=== PATIENT | male | born 1990 | race Caucasian/White ===

== ENCOUNTER → 2020-07-12 | Emergency (ER) | payer MEDICAID ==
[~2020-07-12] VITALS: Ht 165.1 cm; Wt 81.6 kg
[~2020-07-12] MED LIST: CEPH500T PO; CEPHALEXIN MONOHYDRATE 500 MG CAPSULE PO ONE; IBUP-1955 PO; SULF1TAB48 PO; SULFAMETH/TRIMETH 800/160 MG 1 UDTAB TABLET ONE; SULFAMETH/TRIMETH 800/160 MG 1 UDTAB TABLET PO ONE; TDAP [DIPH/PERTUSSIS/TET] 0.5 ML VIAL IM ONE
--- NOTE | 2020-07-12 20:35 | NUR ---
PT BIBSELF C/O RT RING FINGER LAC X4 DAYS. PT AAOX4 BREATHING EVENLY AND UNLABORED. PT STATES HE " WAS WORKING ON HIS CAR AND SLICED HIS FINGER ON THE FENDER." PT ATTACHED TO MONITOR AND POX. PT SKIN WARM AND INTACT. PT GIVEN BLANKET AND CALL LIGHT WITHIN REACH
--- NOTE | 2020-07-12 20:40 | NUR ---
MASSIEL ELIZABETH AT BEDSIDE
--- NOTE | 2020-07-12 20:51 | NUR ---
Patient discharged to home in stable condition. Written and verbal after care instructions given. Patient verbalizes understanding of instruction. PT ambulatory with a steady gait
[2020-07-12 21:10] VITALS: BP 126/66
== END | disposition home or self-care (01) ==
LOC: ER 20:27
DX: S61.214A Laceration without foreign body of right ring finger without damage to nail, initial encounter (principal); L03.011 Cellulitis of right finger; Z60.2 Problems related to living alone; Z79.899 Other long term (current) drug therapy; W26.8XXA Contact with other sharp object(s), not elsewhere classified, initial encounter; Y93.89 Activity, other specified; Y92.89 Other specified places as the place of occurrence of the external cause; Y99.0 Civilian activity done for income or pay
CPT/HCPCS: 90715